=== PATIENT | female | born 1950 | race Caucasian/White ===

== ENCOUNTER 2019-11-27 15:53 | Outpatient (RCR) | payer MEDICARE, SELFPAY ==
--- NOTE | 2019-11-27 16:56 | PTOPEVAL ---
Thank you for referring this patient to [facility]. Please review, sign, date and return this plan of care LORENA. I agree with and certify that the following plan of care is medically necessary. Referring Physician Date Admitting Provider: Attending Provider: PHYSICIAN NOT ON STAFF Referring Provider: *PT Outpatient Evaluation Start: 11/27/19 16:14 Freq: Status: Active Protocol: Document 11/27/19 16:10 ANDRES (Rec: 11/27/19 16:35 ANDRES [id number]) Therapy Assessment Status Assessment Status Assessment Status Evaluation Evaluation Information Problem Diagnosis closed fx of anterior process of the right calcaneus Subjective Information Pt. reports she broke her heel Query Text:As Reported By Patient/ on 09/24/19 after falling down Family steps at home. She reports she was placed in a boot and is was completely removed on . She reports she has always been able to bear weight. She reports that she does have pain currently with walking. She describes all pain in the right heel. She reports that she also has pain across the top of the right foot. She reports developing increased back pain due to her abnormal walking. Pt. reports that her goal is to decrease her foot and back pain. Prior Level of Function Activity Level (Last 3 Months) Occupation retired Activity of Daily Living Ability Independent Indoor/Home Mobility Independent Community Mobility Independent Stairs Ability Independent Functional Cognition (Planning, Shopping Independent , Taking Medications) Cooking Yes Cleaning Yes Laundry Yes Shopping Yes Driving Yes Pain Assessment Timing of Pain Assessment Timing of Pain Assessment Pre-Treatment Pain Scale Pain Scale Used Numeric (1 - 10) Self Report Pain Assessment Lower Back Reported Pain Level 8 Pain Description Aching,Burning Pain Frequency Continuous Right Foot/Feet Reported Pain Level 5 Pain Description Aching Pain Score Pain Score 5,8: Self Report Lower
== END 2020-01-17 16:35 | disposition home or self-care (01) ==
LOC: CHSPT 15:53
DX: S92.024D Nondisplaced fracture of anterior process of right calcaneus, subsequent encounter for fracture with routine healing (principal)
CPT/HCPCS: 97110; 97140; 97161; 97530

== ENCOUNTER 2020-03-28 22:33 | Emergency (ER) | payer MEDICARE, SELFPAY ==
--- NOTE | ~2020-03-28 | XR_ITS ---
XR lumbar spine 2-3V 03/28/2020 23:11 Indication: Low back pain Procedure: 3 views lumbar spine Comparison: No prior studies for comparison. Findings: There is a wedge compression fracture of T12, likely chronic. There is disc narrowing at L1 -2. There is multilevel facet hypertrophy with grade 1 degenerative spondylolisthesis at L4-5. There is disc narrowing at L3-4, L4-5 and L5-S1. There is atherosclerosis of the aorta. There is mild dextr ocurvature of the lumbar spine. There are cholecystectomy clips. Impression: 1: Mild anterior wedge compression fracture of T12, likely chronic. 2: Moderate lumbar spondylosis. Reviewed, dictated and finalized at location A. Impression: 1: Mild anterior wedge compression fracture of T12, likely chronic. 2: Moderate lumbar spondylosis.
--- NOTE | ~2020-03-28 | XR_ITS ---
XR hip LT 2V w AP pelvis 03/28/2020 23:11 INDICATION: Left hip pain PROCEDURE: AP pelvis and 2 views left hip COMPARISON: No prior studies for comparison. FINDINGS: Fracture, dislocation or subluxation is not identified. Pelvic rings are intact. There is l ower lumbar spondylosis. The soft tissues appear within normal limits. No foreign bodies are identif ied. IMPRESSION: 1: NO ACUTE BONE OR JOINT ABNORMALITY IDENTIFIED. Reviewed, dictated and finalized at location A.
[2020-03-28 22:33] VITALS: BP 105/60; RESP 14; O2SAT 95
[2020-03-28 22:40] VITALS: BP 134/69; PULSE 90; RESP 20; TEMP 36.5; O2SAT 97
[2020-03-28] MEDS: MORPHINE SULFATE 4 MG/ML INJ IV PUSH (22:53)
--- NOTE | 2020-03-28 23:28 | ED.BACK ---
HPI - Back Pain/Injury General Chief Complaint: Back Pain/Injury Stated Complaint: AMB Source: patient Mode of arrival: EMS Limitations: no limitations History of Present Illness HPI Narrative: this is a 69-year-old female with a history of chronic lower back pain and a history of compression fracture, that presents via EMS after she was complaining of lower back pain with radiation into her left lower leg. The patient has no dysuria no fever or chills no numbness or tingling in the perinium area no loss of bowel or bladder function. Patient denies any injuries, no falls no chest pain no shortness of breath no abdominal pain. MD elicited complaint: back pain Pertinent past history: prior back pain Onset (ago): day(s) Timing: constant Severity: moderate Pain scale (0-10): 8 Similar Symptoms Previously: Yes Quality: aching, tingling and spasming Location: lumbar spine and left lower back Radiation: left upper leg Exacerbating factors: movement Relieving factors: immobilization Associated symptoms: numbness and loss of sensation in lower extremities Related Data Home Medications Medication Instructions Recorded Confirmed benzonatate [Tessalon Perles] 100 mg PO TID PRN 03/28/20 03/28/20 citalopram 20 mg PO DAILY 03/28/20 03/28/20 clobetasol 1 applic TOPICAL PRN 03/28/20 03/28/20 fosinopril 20 mg PO DAILY 03/28/20 03/28/20 gabapentin 900 mg PO TID 03/28/20 03/28/20 hydrochlorothiazide 25 mg PO DAILY 03/28/20 03/28/20 meloxicam 7.5 mg PO BID 03/28/20 03/28/20 omeprazole 40 mg PO DAILY 03/28/20 03/28/20 simvastatin 20 mg PO HS 03/28/20 03/28/20 triamcinolone acetonide 1 applic DENTAL BID 03/28/20 03/28/20 Allergies Allergy/AdvReac Type Severity Reaction Status Date / Time cephalexin [From Keflex] Allergy Rash Verified 03/28/20 22:42 Review of Systems Review of Systems: All systems reviewed & are unremarkable except as noted in HPI and below PMFSH Past Medical History Medical History Chronic back pain GERD (gastroesophageal reflux disease) HLD (hyperlipidemia) HTN (hypertension) Thoracic compression fracture Exam Const: General: no acute distress and alert Orientation/consciousness: patient oriented x3 HENMT: Head: normal to inspection and contusion Eyes: Conjunctivae: conjunctivae normal Pupils: Equal, round and reactive pupils present Neck: Neck: normal visual inspection, no lymphadenopathy and no meningeal signs Chest: Chest palpation & inspection: normal inspection of the chest Resp: Effort & Inspection: normal respiratory effort Cardio: Rate: regular rate Rhythm: regular rhythm GI: Auscultation: normal bowel sounds : General: Yes no CVA tenderness Back/Spine/Pelvis: Other: low back pain with positive straight leg raising test on the left Skin: General skin exam: normal color Rashes: no rashes Neuro: General: patient oriented x3 and moves all extremities Extrem: General: normal to inspection and no pedal edema Psych: Mental Status: mental status grossly normal Course Course Emergency Course: patient has some pain after reassessment is down to about a 3/10 although she does have pain with range of motion, explained that she needs to picker and packer her medication at the pharmacy in the morning and to follow-up with her primary care physician as soon as possible for further evaluation and treatment. Vital Signs Vital signs: Vital Signs Respiratory Rate 14 03/28/20 22:33 Blood Pressure 105/60 03/28/20 22:33 Pulse Oximetry 95 03/28/20 22:33 Temperature 36.5 C 03/28/20 22:40 Pulse Rate 90 03/28/20 22:40 Respiratory Rate 20 03/28/20 22:40 Blood Pressure 134/69 03/28/20 22:40 Pulse Oximetry 97 03/28/20 22:40 Critical Care Time Critical Care Time Critical Care Time: No Discharge Plan Discharge Clinical Impression: Sciatica Qualifiers: Laterality: left Qualified Code(s): M54.32 - Sciatica, left
[2020-03-28 23:38] VITALS: BP 127/66; PULSE 90; RESP 20; O2SAT 99
== END 2020-03-28 23:39 | disposition home or self-care (01) ==
PROVIDERS: Emergency Provider Emergency Medicine
DX: M54.32 Sciatica, left side (principal)
CPT/HCPCS: 72100; 73502; 96374; 99283; 99284; J2270

== ENCOUNTER 2020-06-27 09:51 | Outpatient (CLI) | payer MEDICARE, SELFPAY ==
--- NOTE | ~2020-06-27 | DEXA_ITS ---
BMD(1) Young-Adult(2) Age-Matched(3) Region (g/cm2) T-score Z-score WHO Classification L1 0.989 -1.2 -0.7 Osteopenia L2 1.029 -1.5 -1.0 Osteopenia L3 1.291 0.6 1.1 Normal L4 1.178 -0.3 0.2 Normal L1-L4 1.129 -0.5 0.0 Normal Trend: L1-L4 Change vs Change vs Measured Age BMD(1) Baseline Previous Date [age]) (g/cm2) (%) (%) 06[birth year]27/2020 [age] 1.129 baseline - 1 - Statistically 68% of repeat scans fall within 1SD (+- 0.010 g/cm2 for AP Spine L1-L4) 2 - [place] (Combined NHANES (ages 20-30) / Drip In (ages 20-40)) AP Spine Reference Population (v112) 3 - Matched for Age, Weight (females 25-100 kg), Ethnic 11 - World Health Organization - Definition of Osteoporosis and Osteopenia for Women: Normal = T-score at or above -1.0 SD; Osteopenia = T-score between -1.0 and -2.5 SD; Osteoporosis = T-score at or below -2.5 SD; (WHO definitions only apply when a young healthy Women reference database is used to determine T-scores.) Printed: 06/27/2020 10:29:29 AM (13.60)76:3.00:22.22:27.0 0.00:13.14 0.60x1.05 32.1:%Fat=51.1% 0.00:0.00 0.00:0.00 Filename: [id number] Scan Mode: Thick;OneScan 83.0 uGy COM DEV [id number] BMD(1) Young-Adult(2,7) Age-Matched(3) Region (g/cm2) T-score Z-score WHO Classification Neck Left 0.804 -1.7 -0.7 Osteopenia Right 0.794 -1.8 -0.7 Osteopenia Mean 0.799 -1.7 -0.7 Osteopenia Difference 0.011 0.1 0.1 - Total Left 0.940 -0.5 0.2 Normal Right 0.924 -0.7 0.1 Normal Mean 0.932 -0.6 0.1 Normal Difference 0.016 0.1 0.1 - Hip Macy Length Comparison (mm) (Right = 94.2 mm) (Mean = 100.8 mm) (Left = 91.8 mm) Trend: Total Mean Change vs Change vs Measured Age BMD(1) Baseline Previous Date (years) (g/cm2) (%) (%) 06/27/2020 69.9 0.932 baseline - 1 - Statistically 68% of repeat scans fall within 1SD (+- 0.010 g/cm2 for DualFemur Total) 2 - [place] (Combined NHANES (ages 20-30) / Drip In (ages 20-40)) Femur Reference Population (v112) 3 - Matched for Age, Weight (females 25-100 kg), Ethnic 7 - DualFemur Total T-score difference is 0.1. Asymmetry is None. 11 - World Health Organization - Definition of Osteoporosis and Osteopenia for Women: Normal = T-score at or above -1.0 SD; Osteopenia = T-score between -1.0 and -2.5 SD; Osteoporosis = T-score at or below -2.5 SD; (WHO definitions only apply when a young healthy Women reference database is used to determine T-scores.) Printed: 06/27/2020 10:29:29 AM (13.60); Filename: [id number]; Right Femur; 26.2:%Fat=45.9%; Neck Angle (deg)= 70; Scan Mode: Standard 37.0 uGy; Left Femur; 27.4:%Fat=43.0%; Neck Angle (deg)= 66; Scan Mode: Standard 37.0 uGy COM DEV [id number] Dear Servando Ruiz, Your patient Marie Ballard completed a BMD test on 06/27/2020 using the COM DEV DXA System (analysis version: 13.60) manufactured by [employer]. The following summarizes the results of our evaluation. PATIENT BIOGRAPHICAL: Name: Marie Ballard Date: 1950 Height: 59.0 in. Gender: Female
== END 2020-06-27 09:52 | disposition home or self-care (01) ==
LOC: CHSIMG 09:55
PROVIDERS: PCP Family Medicine; Visit Provider Family Medicine
DX: Z78.0 Asymptomatic menopausal state (principal)
CPT/HCPCS: 77080

== ENCOUNTER 2025-04-10 13:44 | Outpatient (RCR) | payer SELFPAY | END 2025-04-10 23:59 | disposition home or self-care (01) | LOC: ANHAUDIO 13:44 | DX: Z46.1 Encounter for fitting and adjustment of hearing aid (principal) | CPT/HCPCS: V5014 ==